=== PATIENT | male | born 2005 | race Caucasian/White ===

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

== ENCOUNTER 2023-01-15 12:47 | Inpatient (IN) | payer MEDICAID ==
[~2023-01-15] VITALS: Ht 167.6 cm; Wt 64.0 kg
[~2023-01-15 12:47] MED LIST changes: -BLOO-1718 TOP; -CHOL20002 PO; +ESCI5TAB17 PO; +INSU100I29 SQ; -INSU100I31 SQ; -INSU100I61 SQ; +INSU100V11 SQ; -NEED-137; -NICO-731 TOP; -SERT25TA84 PO; -[UNRECOGNIZED DRUG - CODE]
[2023-01-15] MEDS ORDERED: normal saline 1000ml 1,000 ML IV ONE (13:20)
[2023-01-15 13:22] LABS: BILIRUBIN,URINE NEGATIVE (Neg); CLARITY,URINE CLEAR (Clear); COLOR,URINE YELLOW (Yellow); GLUCOSE, URINE 500 mg/dl (Neg); KETONES,URINE >=80 mg/dl (Neg); LEUKOCYTE ESTERASE ,URINE NEGATIVE (Neg); NITRITES, URINE NEGATIVE (Neg); OCCULT BLOOD,URINE TRACE-INTACT (Neg); PH,URINE 5.5 (4.8-8.0); PROTEIN,URINE TRACE mg/dl (Neg); UROBILINOGEN,URINE 0.2 E.U/dL (0.2-1.0)
[2023-01-15 13:27] LABS: UA COLLECTION TYPE VOIDED
[2023-01-15 13:29] LABS: BACTERIA,URINE FEW /HPF (Neg); HYALINE CASTS 0-3 /LPF (NEGATIVE); RBC,URINE 0-2 /HPF (0-2); SQUAMOUS EPITHELIAL CELL,UR FEW /LPF (FEW); WBC,URINE 0-4 /HPF (0-4)
[2023-01-15 13:29] LABS: BASOPHILS % (AUTO) 0.1 % (0-1); EOSINOPHILS % (AUTO) 0 % (0-6); HEMATOCRIT 44.4 % (42.0-52.0); HEMOGLOBIN 14.5 g/dl (14.0-17.9); LYMPHOCYTES # (AUTO) 1.6 X10'3 (1.1-4.8); LYMPHOCYTES % (AUTO) 8.8 % (21-51); MEAN CORPUSCULAR HEMOGLOBIN 30.7 PG (27.0-31.0); MEAN CORPUSCULAR HGB CONC 32.7 g/dL (33.0-36.5); MEAN CORPUSCULAR VOLUME 93.8 FL (78-98); MEAN PLATELET VOLUME 8.7 FL (7.4-10.4); MONOCYTES % (AUTO) 5.6 % (2-12); NEUTROPHILS % (AUTO) 85.5 % (42-75); PLATELET COUNT 405 X10'3 (140-440); RED BLOOD COUNT 4.73 X10'6 (4.70-6.10); WHITE BLOOD COUNT 17.6 X10'3 (4.5-11.0)
[2023-01-15] MEDS ORDERED: ondansetron/PF 4mg/2ml inj IV ONE (13:30)
[2023-01-15] MEDS ORDERED: insulin regular, human 10 units/0.1 ml syringe IV ONE (13:30)
[2023-01-15 13:34] LABS: ABG BASE EXCESS -22.1 mmol/L (-2.0-2.0); ABG HCO3 5.1 mmol/L (22.0-26.0); ABG OXYGEN SATURATION 98.3 % (94-97); ABG PCO2 (T) 16.1 mmHg (35.0-48.0); ABG PH (T) 7.116 (7.340-7.440); ABG PO2 (T) 132.6 mmHg (75.0-100.0); ALLEN'S TEST POSITIVE; FHHb 1.7 % (0.0-5.0); FMetHb 0.6 % (0.0-1.5); FO2Hb 97.7 % (94-97); MODE ROOM AIR; PATIENT TEMPERATURE 36.6; TOTAL HEMOGLOBIN 15.9 G/dl (14.0-17.9)
[2023-01-15 13:50] LABS: ALANINE AMINOTRANSFERASE 29 U/L (12-78); ALBUMIN 4.4 G/DL (3.4-5.0); ALBUMIN/GLOBULIN RATIO 1.3 (1.1-1.5); ALKALINE PHOSPHATASE 172 IU/L (20-180); ANION GAP 31 (8-16); ASPARTATE AMINO TRANSFERASE 30 U/L (10-37); BILIRUBIN,TOTAL 0.5 MG/DL (0.1-1.0); BLOOD UREA NITROGEN 20 MG/DL (7-18); CALCIUM 9.4 MG/DL (8.5-10.1); CHLORIDE 95 MMOL/L (99-107); CREATININE 1.43 MG/DL (0.60-1.10); LIPASE 11 U/L (16-77); POTASSIUM 5.6 MMOL/L (3.5-5.1); SODIUM 133 MMOL/L (135-145); TOTAL PROTEIN 7.9 G/DL (6.4-8.2); eCRCL 75 ML/MIN; eGFR 64 ML/MIN
[2023-01-15 13:55] LABS: GIANT PLATELET FEW; PLATELET ESTIMATE NORMAL; TOTAL CELLS COUNTED 100
[2023-01-15 14:14] LABS: MAGNESIUM 2.1 MG/DL (1.5-2.4)
[2023-01-15 14:24] LABS: ACETONE LARGE (NEGATIVE)
[2023-01-15 14:39] LABS: TOTAL CARBON DIOXIDE 6.8 MMOL/L (24-32)
[2023-01-15 14:40] LABS: GLUCOSE 508 MG/DL (70-104)
--- NOTE | 2023-01-15 14:46 | NUR ---
TRIED TO CONTACT PA ABOUT STARTING DKA PROTOCOL. WILL CHECK BACK FOR CONFIRMATION TO START PROTOCOL.
[2023-01-15] MEDS ORDERED: Insulin Reg/NS 100units/100mL 100 ML IV SCH (15:10)
[2023-01-15] MEDS ORDERED: potassium CL 20mEq in D5-1/2NS 1,000 ML IV PRN (15:10)
[2023-01-15] MEDS ORDERED: ondansetron/PF 4mg/2ml inj IV PRN (15:20)
[2023-01-15] MEDS ORDERED: acetaminophen 325mg tablet PO PRN ×2 (15:20)
[2023-01-15] MEDS ORDERED: morphine 4 MG/ML inj SYRINge IV PRN (15:20)
[2023-01-15] MEDS ORDERED: morphine 2 MG/ML inj. syringe IV PRN (15:20)
[2023-01-15] MEDS ORDERED: magnesium hydroxide 30ml (MOM) UD suspension PO PRN (15:20)
[2023-01-15] MEDS ORDERED: ringers solution, lacted 1,000 ML IV ONE ×3 (15:20→15:25)
--- NOTE | 2023-01-15 15:34 | NUR ---
PT IS VERBALLY AGITATED. WANTING TO DRINK FLUIDS AND HAVE FOOD AGAINST DOCTORS ORDERS OF NPO. DOCTOR NOTIFIED OF PATIENTS FRUSTRATIONS AND IS BEDSIDE HEARING PATIENTS CONCERNS.
[2023-01-15] MEDS ORDERED: hydrOXYzine 25 MG tablet PO ONE (15:40)
[2023-01-15] MEDS ORDERED: dextrose 5%-1/4 normal saline 1,000 ML IV SCH (15:45)
[2023-01-15] MEDS ORDERED: acetaminophen 325mg tablet PO ONE (15:45)
[2023-01-15] MEDS: dextrose 5%-1/2 normal saline 1,000 ML IV SCH ×2 (16:02→22:35)
[2023-01-15] MEDS: normal saline 1000ml 1,000 ML IV SCH ×3 (16:13→23:10)
--- NOTE | 2023-01-15 16:21 | NUR ---
SPOKE TO DR MÁRQUEZ ASSISTANT ADMINISTRATOR TO CLARIFY THE ORDER OF LACTATE RINGER ,INFORMED PT RECEIVED 2L OF N.S , PER MD INFUSE 2L OF LR AND START 3 rd LR AT 150 ML/HR FOR MAINTENCE FLUIDS.
[2023-01-15] MEDS: ringers solution, lacted 1,000 ML IV SCH ×2 (17:21→22:05)
[2023-01-15 19:20] LABS: ALBUMIN 3.4 G/DL (3.4-5.0); ANION GAP 19 (8-16); BLOOD UREA NITROGEN 12 MG/DL (7-18); BUN/CREATININE RATIO 10.5 (10.0-20.0); CALCIUM 8.7 MG/DL (8.5-10.1); CHLORIDE 104 MMOL/L (99-107); CREATININE 1.14 MG/DL (0.60-1.10); GLUCOSE 212 MG/DL (70-104); POTASSIUM 4.4 MMOL/L (3.5-5.1); SODIUM 133 MMOL/L (135-145); eCRCL 94 ML/MIN; eGFR 83 ML/MIN
[2023-01-15 19:32] LABS: TOTAL CARBON DIOXIDE 9.7 MMOL/L (24-32)
[2023-01-15] MEDS: famotidine/PF 10 mg/ml inj IV SCH (20:07)
[2023-01-16 00:29] LABS: ALANINE AMINOTRANSFERASE 24 U/L (12-78); ALBUMIN 3.2 G/DL (3.4-5.0); ALBUMIN/GLOBULIN RATIO 1.1 (1.1-1.5); ALKALINE PHOSPHATASE 123 IU/L (20-180); ANION GAP 11 (8-16); ASPARTATE AMINO TRANSFERASE 18 U/L (10-37); BILIRUBIN,TOTAL 0.4 MG/DL (0.1-1.0); BLOOD UREA NITROGEN 9 MG/DL (7-18); BUN/CREATININE RATIO 9.5 (10.0-20.0); CALCIUM 8.6 MG/DL (8.5-10.1); CHLORIDE 106 MMOL/L (99-107); CREATININE 0.95 MG/DL (0.60-1.10); GLUCOSE 94 MG/DL (70-104); POTASSIUM 3.9 MMOL/L (3.5-5.1); SODIUM 136 MMOL/L (135-145); TOTAL CARBON DIOXIDE 19.2 MMOL/L (24-32); TOTAL PROTEIN 6.1 G/DL (6.4-8.2); eCRCL 113 ML/MIN; eGFR > 90 ML/MIN
[2023-01-16] MEDS: normal saline 1000ml 1,000 ML IV SCH (03:10)
[2023-01-16] MEDS: ringers solution, lacted 1,000 ML IV SCH ×2 (05:11→08:24)
[2023-01-16] MEDS: dextrose 5%-1/2 normal saline 1,000 ML IV SCH (05:14)
[2023-01-16] MEDS ORDERED: dextrose 50%-water 50ml dispensing syringe IV ONE (05:27)
[2023-01-16] MEDS ORDERED: dextrose ORAL solution 15 GM/59 ML bottle PO STA (05:32)
[2023-01-16] MEDS ORDERED: DEXTROSE 15 GM of carb/4 tabs (each vial/BOTTLE has 4 tablets) PO STA (05:38)
[2023-01-16] MEDS ORDERED: Dextrose 10%-water IV solution 1,000 ML IV PRN (05:50)
[2023-01-16] MEDS ORDERED: ringers solution, lacted 1,000 ML IV ONE ×2 (06:50)
[2023-01-16 07:02] LABS: BASOPHILS % (AUTO) 0.2 % (0-1); EOSINOPHILS % (AUTO) 0.1 % (0-6); HEMATOCRIT 35.3 % (42.0-52.0); HEMOGLOBIN 11.9 g/dl (14.0-17.9); LYMPHOCYTES # (AUTO) 1.5 X10'3 (1.1-4.8); LYMPHOCYTES % (AUTO) 10.8 % (21-51); MEAN CORPUSCULAR HEMOGLOBIN 30.6 PG (27.0-31.0); MEAN CORPUSCULAR HGB CONC 33.7 g/dL (33.0-36.5); MEAN CORPUSCULAR VOLUME 90.6 FL (78-98); MEAN PLATELET VOLUME 7.2 FL (7.4-10.4); MONOCYTES # (AUTO) 1.4 X10'3 (0-0.9); NEUTROPHILS # (AUTO) 11.4 X10'3 (1.8-7.7); NEUTROPHILS % (AUTO) 78.9 % (42-75); PLATELET COUNT 273 X10'3 (140-440); RED CELL DISTRIBUTION WIDTH 13.5 % (11.5-14.5); WHITE BLOOD COUNT 14.4 X10'3 (4.5-11.0)
[2023-01-16 07:14] LABS: ALANINE AMINOTRANSFERASE 21 U/L (12-78); ALBUMIN 2.8 G/DL (3.4-5.0); ALBUMIN/GLOBULIN RATIO 1.1 (1.1-1.5); ALKALINE PHOSPHATASE 103 IU/L (20-180); ANION GAP 8 (8-16); ASPARTATE AMINO TRANSFERASE 24 U/L (10-37); BILIRUBIN,TOTAL 0.3 MG/DL (0.1-1.0); BLOOD UREA NITROGEN 8 MG/DL (7-18); BUN/CREATININE RATIO 8.6 (10.0-20.0); CALCIUM 8.4 MG/DL (8.5-10.1); CHLORIDE 108 MMOL/L (99-107); CREATININE 0.93 MG/DL (0.60-1.10); GLUCOSE 82 MG/DL (70-104); PHOSPHORUS 1.6 MG/DL (2.3-4.5); POTASSIUM 3.1 MMOL/L (3.5-5.1); SODIUM 136 MMOL/L (135-145); TOTAL CARBON DIOXIDE 19.6 MMOL/L (24-32); TOTAL PROTEIN 5.3 G/DL (6.4-8.2); eCRCL 115 ML/MIN; eGFR > 90 ML/MIN
--- NOTE | 2023-01-16 08:00 | NUR ---
SPOKE WITH DR GRAHAM VIA TELEPHONE TO INFORM HIM OF PATIENT LABS, ORDERS RECEIVED.
[2023-01-16] MEDS ORDERED: glucagon, human recombinant 1mg kit SUBCUT PRN ×2 (08:10→11:45)
[2023-01-16] MEDS ORDERED: dextrose 50%-water 50ml dispensing syringe IV PRN ×5 (08:10→11:45)
[2023-01-16] MEDS ORDERED: potassium Cl 40MEQ/1/2NS 520ml 520 ML IV PRN ×2 (08:10→10:00)
[2023-01-16] MEDS ORDERED: magnesium 4gm in 100ml NS 100 ML IV PRN ×2 (08:10→10:00)
[2023-01-16] MEDS ORDERED: potassium Cl 20 mEq SR tablet PO PRN ×4 (08:10→10:00)
[2023-01-16] MEDS ORDERED: magnesium Cl slow-release 64mg tablet PO PRN ×2 (08:10→10:00)
[2023-01-16] MEDS ORDERED: insulin glargine (Lantus) pen - multi-dose SQ SCH ×2 (08:15→21:00)
[2023-01-16] MEDS: enoxaparin 40mg/0.4ml syringe SUBCUT SCH ×2 (08:31→08:35)
[2023-01-16] MEDS: famotidine/PF 10 mg/ml inj IV SCH ×2 (08:31→08:36)
[2023-01-16 10:00] VITALS: TEMP 98.2
[2023-01-16] MEDS ORDERED: HYDROcodone/acetaminophen 5mg/325mg tablet PO PRN (10:00)
[2023-01-16] MEDS ORDERED: HYDROcodone/acetaminophen 10/325mg tab PO PRN (10:00)
[2023-01-16] MEDS ORDERED: acetaminophen 325mg tablet PO PRN (10:00)
[2023-01-16] MEDS ORDERED: magnesium hydroxide 30ml (MOM) UD suspension PO PRN (10:00)
[2023-01-16] MEDS ORDERED: magnesium 2GM in 50ml NS 50 ML IV PRN (10:00)
[2023-01-16] MEDS ORDERED: morphine 2 MG/ML inj. syringe IV PRN (10:00)
[2023-01-16] MEDS ORDERED: mag hydrox/Alum hydrox/simeth 30ml oral suspension PO PRN ×2 (10:00→10:35)
[2023-01-16] MEDS ORDERED: ondansetron/PF 4mg/2ml inj IV PRN (10:00)
[2023-01-16] MEDS ORDERED: LORazepam 2 mg/ml vial IV PRN (10:35)
[2023-01-16] MEDS ORDERED: haloperidol 5mg tablet PO PRN (10:35)
[2023-01-16] MEDS ORDERED: haloperidol lactate 5mg/ml inj IM PRN (10:35)
--- NOTE | 2023-01-16 10:55 | NUR ---
Received order for consult. Met with patient in regards to alcohol use and to see if patient was interested in resources for treatment options. Patient declined.
--- NOTE | 2023-01-16 11:00 | NUR ---
PT AGITATED AND DOES NOT WANT TO BE IN THE HOSPITAL ANYMORE. EDUCATED ON THE BENEFIT OF STAYING AND CONTINUING TO GET TREATMENT FOR DKA. HAS AGREED TO STAY FOR NOW.
[2023-01-16] MEDS ORDERED: normal saline 1000ml 1,000 ML IV SCH (11:45)
[2023-01-16] MEDS ORDERED: DEXTROSE 15 GM of carb/4 tabs (each vial/BOTTLE has 4 tablets) PO PRN ×2 (11:45)
[2023-01-16] MEDS ORDERED: insulin Lispro (HumaLOG) vial - multi-dose SQ SCH (11:45)
[2023-01-16] MEDS ORDERED: MESSAGE TO PHARMACY PO ONE (11:45)
[2023-01-16] MEDS ORDERED: folic acid 1mg/0.2ml inj IV SCH (12:13)
--- NOTE | 2023-01-16 12:23 | NUR ---
PT IS UP AT BEDSIDE EATING LUNCH. BLOOD SUGAR 289 AND WILL COVER AFTER MEAL CONSUMED
[2023-01-16 12:31] LABS: POTASSIUM 3.8 MMOL/L (3.5-5.1)
[2023-01-16 12:38] LABS: HEMOGLOBIN A1C 11.4 % (4.5-6.2)
[2023-01-16] MEDS ORDERED: thiamine 100mg/ml 2ml inj. IV SCH (13:00)
[2023-01-16 14:34] VITALS: BP 121/78; PULSE 95; RESP 16; O2SAT 99
--- NOTE | 2023-01-16 15:25 | NUR ---
tried to get a hold of the deli department manager charly to alert him that the patient wanted to leave AMA stating "i am not staying here one more minute" pt was educated on the benefits of staying and receiving further care. pt refused and signed AMA paperwork .
[2023-01-16] MEDS ORDERED: K and/or MAG REPLACEMENT MC SCH (20:00)
[2023-01-16] MEDS ORDERED: docusate sod 100mg capsule PO SCH (20:00)
[2023-01-17] MEDS ORDERED: nicotine 14mg patch - 24hr TD SCH (08:00)
[2023-01-17] MEDS ORDERED: multivitamins, therapeutics tablet PO SCH (08:00)
[2023-01-18] MEDS ORDERED: LORazepam 1 MG tablet PO PRN (10:35)
[2023-01-18] MEDS ORDERED: LORazepam 2 mg/ml vial IV PRN (10:35)
[2023-01-20] MEDS ORDERED: LORazepam 1 MG tablet PO PRN (10:35)
[2023-01-20] MEDS ORDERED: LORazepam 2 mg/ml vial IV PRN (10:35)
== END 2023-01-16 15:25 | disposition left against medical advice (07) | DRG 420 ==
LOC: ER 12:47 → ED HOLD 15:20
PROVIDERS: ADMIT Internal Medicine Critical Care Medicine; ATTEND Internal Medicine Critical Care Medicine
DX: E10.10 Type 1 diabetes mellitus with ketoacidosis without coma (principal); D72.829 Elevated white blood cell count, unspecified; F10.10 Alcohol abuse, uncomplicated; F17.210 Nicotine dependence, cigarettes, uncomplicated; Z53.29 Procedure and treatment not carried out because of patient's decision for other reasons; Z79.4 Long term (current) use of insulin; Z80.8 Family history of malignant neoplasm of other organs or systems; Z90.49 Acquired absence of other specified parts of digestive tract
CPT/HCPCS: 36415; 36600; 80048; 80053; 81001; 82009; 82803; 82948; 83036; 83690; 83735; 84100; 84132; 84145; 85007; 85018; 85025; 99285; G0378; J1650; J1815; J2405; J3411; J3490; J7030; J7120